=== PATIENT | female | born 1945 | race Caucasian/White ===

== ENCOUNTER 2018-04-12 11:00 | Inpatient (IN) ==
[2018-04-12] MEDS ORDERED: ASPIRIN 325 MG TABLET PO STA (11:17)
[2018-04-12] MEDS ORDERED: ONDANSETRON 4 MG/2 ML VIAL IV PRN ×2 (11:17→14:21)
[2018-04-12] MEDS ORDERED: MORPHINE 4 MG/1 ML VIAL IV PRN ×2 (11:17→14:21)
[2018-04-12] MEDS ORDERED: ALUM/MAG/SIMETH/LIDO VISC 1:1 30 ML BOTTLE PO STA (11:23)
[2018-04-12 13:21] LABS: Basophils # 0.1 10*3/uL (0.0-0.2); Basophils % 0.8 % (0.0-0.8); Eosinophils # 0.2 10*3/uL (0.0-0.87); Eosinophils % 1.6 % (0.00-10.9); Hematocrit 48.1 VOL% (35.7-47.0); Hemoglobin 15.8 GM/DL (12.0-16.0); Immature Granulocytes % 0.4 %; Immature Granulocytes Absolute 0.04 #; Lymphocytes # 1.6 10*3/uL (1.4-4.0); Lymphocytes % 16.3 % (21.3-54.2); Mean Corpuscular HGB Conc 32.8 GM/DL (32-36); Mean Corpuscular Hemoglobin 28 PG (27-34); Mean Corpuscular Volume 84.4 FL (87-102); Mean Platelet Volume 10.5 FL (9.6-12.0); Monocytes # 0.6 10*3/uL (0.11-0.8); Monocytes % 6.1 % (1.7-12.7); Neutrophils # 7.4 10*3/uL (1.4-7.4); Neutrophils % 74.8 % (38.7-73.9); Platelet Count 249 T/CUMM (130-400); Red Cell Distribution Width 13.1 % (9.3-17.3); White Blood Count 9.9 T/CUMM (4-12)
[2018-04-12 13:38] LABS: Albumin 4.1 G/DL (3.4-5.0); Bilirubin,Total 1.3 MG/DL (0.2-1.0); Osmolality,Calculated 284.3 MOS/KG (273-304); Potassium 3.6 MMOL/L (3.5-5.1); Total Protein 7.3 G/DL (6.4-8.3)
[2018-04-12] MEDS ORDERED: NITROGLYCERIN 2% OINT 1 INCH/GM PACK TOP STA (13:59)
[2018-04-12] MEDS ORDERED: ENOXAPARIN 80 MG/0.8 ML SYRINGE SUBCUT STA (14:00)
[2018-04-12] MEDS ORDERED: MAGNESIUM HYDROXIDE SUSP 30 ML UDCUP PO PRN (14:21)
[2018-04-12] MEDS ORDERED: MAGNESIUM SULF RIDER 2 GM in PREMIX 1 EACH IV PRN (14:21)
[2018-04-12] MEDS ORDERED: POTASSIUM CHLORIDE 20 MEQ TABLET PO PRN (14:21)
[2018-04-12] MEDS ORDERED: ALBUTEROL/IPRATROPIUM 3 ML NEB RESP TX PRN (15:09)
[2018-04-12] MEDS ORDERED: GLUCAGON 1 MG VIAL IM PRN (15:11)
[2018-04-12] MEDS ORDERED: DEXTROSE 50% 25 GM/50 ML VIAL IV PRN (15:11)
[2018-04-12 15:14] LABS: INR 0.9
[2018-04-12 15:47] LABS: VLDL CHOLESTEROL 75.8 MG/DL
[2018-04-12] MEDS: SODIUM CHLORIDE 0.45% 1,000 ML IV SCH (17:16)
[2018-04-12] MEDS: LOSARTAN 50 MG TABLET PO SCH (17:17)
[2018-04-12] MEDS: INSULIN LISPRO 100 UNIT/ML SUBCUT SCH ×2 (17:17→22:08)
[2018-04-12] MEDS: METOPROLOL SUCCINATE XL 25 MG TABLET PO SCH ×2 (17:17→22:07)
[2018-04-12 20:34] LABS: CKMB % 4.5 %
[2018-04-12 20:51] LABS: Troponin I 2.4 NG/ML (0.00-0.045)
[2018-04-12] MEDS: ATORVASTATIN 20 MG TABLET PO SCH (22:07)
[2018-04-12 22:27] LABS: CKMB % 4.3 %
[2018-04-12 22:28] LABS: Troponin I 2.43 NG/ML (0.00-0.045)
[2018-04-13] MEDS: ENOXAPARIN 80 MG/0.8 ML SYRINGE SUBCUT SCH ×2 (03:36→17:17)
[2018-04-13 05:14] LABS: Basophils # 0.1 10*3/uL (0.0-0.2); Eosinophils # 0.4 10*3/uL (0.0-0.87); Hematocrit 42.8 VOL% (35.7-47.0); Hemoglobin 13.9 GM/DL (12.0-16.0); Immature Granulocytes % 0.3 %; Immature Granulocytes Absolute 0.02 #; Lymphocytes # 2.3 10*3/uL (1.4-4.0); Lymphocytes % 33.3 % (21.3-54.2); Mean Corpuscular HGB Conc 32.5 GM/DL (32-36); Mean Corpuscular Hemoglobin 27 PG (27-34); Mean Corpuscular Volume 84.4 FL (87-102); Mean Platelet Volume 10.4 FL (9.6-12.0); Monocytes # 0.7 10*3/uL (0.11-0.8); Monocytes % 10.4 % (1.7-12.7); Neutrophils # 3.4 10*3/uL (1.4-7.4); Platelet Count 246 T/CUMM (130-400); Red Blood Count 5.07 MC/CUMM (3.8-5.5); Red Cell Distribution Width 13.2 % (9.3-17.3); White Blood Count 6.9 T/CUMM (4-12)
[2018-04-13 05:31] LABS: Albumin 3.2 G/DL (3.4-5.0); Bilirubin,Total 1.4 MG/DL (0.2-1.0); Calcium 8.3 MG/DL (8.5-10.1); Osmolality,Calculated 284.1 MOS/KG (273-304); Potassium 3.7 MMOL/L (3.5-5.1); Total Protein 6.4 G/DL (6.4-8.3)
[2018-04-13] MEDS: METOPROLOL SUCCINATE XL 25 MG TABLET PO SCH ×2 (08:42→23:30)
[2018-04-13] MEDS: ASPIRIN EC 325 MG TABLET PO SCH (08:42)
[2018-04-13] MEDS: LOSARTAN 50 MG TABLET PO SCH (08:42)
[2018-04-13] MEDS: PANTOPRAZOLE 40 MG TABLET PO SCH (08:43)
[2018-04-13] MEDS: SODIUM CHLORIDE 0.45% 1,000 ML IV SCH ×2 (08:44→17:26)
[2018-04-13] MEDS: INSULIN LISPRO 100 UNIT/ML SUBCUT SCH ×4 (08:44→22:00)
[2018-04-13] MEDS ORDERED: POTASSIUM CHLORIDE RIDER 10 MEQ in PREMIX 1 EACH IV PRN (09:56)
[2018-04-13] MEDS ORDERED: DIAZEPAM 5 MG TABLET PO ONE (09:56)
[2018-04-13] MEDS ORDERED: diphenhydrAMINE CAP 25 MG CAPSULE PO ONE (09:56)
[2018-04-13] MEDS ORDERED: MAGNESIUM SULF RIDER 2 GM in PREMIX 1 EACH IV PRN (09:56)
[2018-04-13] MEDS ORDERED: HEPARIN/NACL 0.9% 2 UNITS/ML 1,000 ML IV ONE (11:02)
[2018-04-13] MEDS ORDERED: VERAPAMIL 5 MG/2 ML VIAL ONE (11:02)
[2018-04-13] MEDS ORDERED: LIDOCAINE 1% 20 ML VIAL ONE (11:02)
[2018-04-13] MEDS ORDERED: NITROGLYCERIN DRIP 50 MG/250 ML BOTTLE IV ONE (11:02)
[2018-04-13] MEDS ORDERED: ENOXAPARIN 30 MG/0.3 ML SYRINGE ONE (11:52)
[2018-04-13] MEDS ORDERED: DEXTROSE 50% 25 GM/50 ML VIAL IV PRN (12:38)
[2018-04-13] MEDS ORDERED: GLUCAGON 1 MG VIAL IM PRN (12:38)
[2018-04-13] MEDS ORDERED: SODIUM CHLORIDE 0.9% 1,000 ML IV SCH (21:00)
[2018-04-13] MEDS: CHLORHEXIDINE 4% SOLN 118 ML BOTTLE TOP SCH (22:20)
[2018-04-13] MEDS: ATORVASTATIN 20 MG TABLET PO SCH (23:30)
[2018-04-13] MEDS: CHLORHEXIDINE 0.12% ORAL RINSE 60 ML BOTTLE SWISH/SPIT SCH (23:30)
[2018-04-14] MEDS ORDERED: PAPAVERINE 60 MG/2 ML VIAL ONE (04:58)
[2018-04-14] MEDS ORDERED: TISSUE ADHESIVE 1 EACH APPLICATOR TOP ONE (04:59)
[2018-04-14] MEDS ORDERED: VANCOMYCIN 1,000 MG VIAL ONE (04:59)
[2018-04-14] MEDS ORDERED: CEFUROXIME INJ 1,500 MG in SYRINGE 1 EACH IV ONE (05:00)
[2018-04-14 05:28] LABS: Basophils # 0.1 10*3/uL (0.0-0.2); Basophils % 0.5 % (0.0-0.8); Eosinophils # 0.1 10*3/uL (0.0-0.87); Eosinophils % 0.9 % (0.00-10.9); Hemoglobin 15.2 GM/DL (12.0-16.0); Immature Granulocytes % 0.3 %; Immature Granulocytes Absolute 0.03 #; Lymphocytes # 1.1 10*3/uL (1.4-4.0); Lymphocytes % 12.2 % (21.3-54.2); Mean Corpuscular HGB Conc 32.3 GM/DL (32-36); Mean Corpuscular Hemoglobin 27 PG (27-34); Mean Corpuscular Volume 84.2 FL (87-102); Mean Platelet Volume 10.6 FL (9.6-12.0); Monocytes # 0.6 10*3/uL (0.11-0.8); Monocytes % 6.7 % (1.7-12.7); Neutrophils # 7.4 10*3/uL (1.4-7.4); Neutrophils % 79.4 % (38.7-73.9); Platelet Count 254 T/CUMM (130-400); Red Blood Count 5.58 MC/CUMM (3.8-5.5); White Blood Count 9.3 T/CUMM (4-12)
[2018-04-14 05:53] LABS: Calcium 8.7 MG/DL (8.5-10.1); Osmolality,Calculated 281.7 MOS/KG (273-304)
[2018-04-14] MEDS: SODIUM CHLORIDE 0.45% 1,000 ML IV SCH ×4 (06:16→18:27)
[2018-04-14] MEDS ORDERED: SUFentanil 250 MCG/5 ML AMP ONE (06:22)
[2018-04-14] MEDS ORDERED: MIDAZOLAM 10 MG/2 ML VIAL ONE (06:22)
[2018-04-14] MEDS: INSULIN LISPRO 100 UNIT/ML SUBCUT SCH ×3 (07:34→16:32)
[2018-04-14] MEDS ORDERED: DIAZEPAM 5 MG TABLET PO ONE (07:45)
[2018-04-14] MEDS: CHLORHEXIDINE 4% SOLN 118 ML BOTTLE TOP SCH ×2 (07:45→18:30)
[2018-04-14] MEDS ORDERED: PANTOPRAZOLE 40 MG TABLET PO ONE (07:45)
[2018-04-14] MEDS ORDERED: ALBUTEROL/IPRATROPIUM 3 ML NEB RESP TX ONE (07:48)
[2018-04-14] MEDS ORDERED: LACTATED RINGERS 1,000 ML IV SCH (08:00)
[2018-04-14] MEDS ORDERED: SODIUM BICARBONATE 50 MEQ/50 ML SYRINGE IV ONE ×2 (08:08→16:11)
[2018-04-14] MEDS ORDERED: CALCIUM CHLORIDE 1,000 MG/10 ML SYRINGE IV ONE ×2 (08:08→18:19)
[2018-04-14] MEDS ORDERED: POTASSIUM CHLORIDE RIDER 100 ML IV ONE (08:08)
[2018-04-14] MEDS ORDERED: PHENYLEPHRINE DRIP 40 MG/250 ML PREMIX IV ONE (08:08)
[2018-04-14] MEDS ORDERED: EPINEPHrine 1 MG/10 ML SYRINGE ONE ×2 (08:09→19:16)
[2018-04-14] MEDS: LOSARTAN 50 MG TABLET PO SCH (10:48)
[2018-04-14] MEDS: CHLORHEXIDINE 0.12% ORAL RINSE 60 ML BOTTLE SWISH/SPIT SCH ×2 (10:48→21:12)
[2018-04-14] MEDS: ASPIRIN EC 325 MG TABLET PO SCH (10:48)
[2018-04-14] MEDS: METOPROLOL SUCCINATE XL 25 MG TABLET PO SCH (10:49)
[2018-04-14] MEDS: PANTOPRAZOLE 40 MG TABLET PO SCH (10:49)
[2018-04-14 12:49] LABS: ABG HCO3 23.6 MMOL/L (20-26); ABG Oxygen Saturation 99.9 % (95-100); ABG PCO2 38.6 MM HG (35-48); ABG PH 7.395 (7.35-7.45); ABG TCO2 20.4 MMOL/L (23-27); Glucose Heart Surgery 155 MG/DL (74-106); Hematocrit Heart Surgery 42.8 PERCENT (37-47); Hemoglobin Heart Surgery 13.9 G/DL (12.0-16.0); Ionized Calcium Arterial 1.08 MMOL/L (1.21-1.46); PCO2 Patient Temp Arterial 38.6 MMHG; PH Patient Temp Arterial 7.395; Patient Temperature 37 CELCIUS; Potassium Heart/CVR 3.6 MMOL/L (3.5-5.1); Sodium Heart/CVR 138 MMOL/L (135-145)
[2018-04-14 13:49] LABS: Apearance,Urine Slightly Hazy (Clear); Bilirubin,Urine Negative (Negative); Blood, Urine Negative (Negative); Glucose,Urine (UA) 150 mg/dL (Negative); Ketones,Urine 20 mg/dL (Negative); Mucus,Urine Occasional /LPF (Occasional); Nitrite,Urine Negative (Negative); Protein,Urine Negative; RBC,Urine 1 /HPF (0-4); Squamous Epithelial Cell,Urine Occasional /HPF (0-10); Urine Color Yellow (Yellow); Urine Specific Gravity 1.021 (1.001-1.035); Urine Urobilinogen < 2.0 EU/DL (0.2-1.0); WBC,Urine 1 /HPF (0-6)
[2018-04-14 14:39] LABS: Hematocrit Heart Surgery 26.1 PERCENT (37-47); Hemoglobin Heart Surgery 8.4 G/DL (12.0-16.0); PCO2 Patient Temp Venous 33.9 MM HG; PH Patient Temp Venous 7.401; PO2 Patient Temp Venous 45.4 MM HG; Potassium Heart/CVR 3.8 MMOL/L (3.5-5.1); VBG Base Excess -3.1 MEQ/L (0-4); VBG HCO3 21.7 MEQ/L (24-28); VBG Oxygen Saturation 89.2 %; VBG PCO2 39.1 MMHG (41-51); VBG PH 7.358; VBG PO2 55.6 MMHG (17-40)
[2018-04-14] MEDS ORDERED: diphenhydrAMINE 50 MG/1 ML VIAL ONE ×2 (14:58→17:55)
[2018-04-14 15:14] LABS: Hematocrit Heart Surgery 26.3 PERCENT (37-47); Hemoglobin Heart Surgery 8.4 G/DL (12.0-16.0); PCO2 Patient Temp Venous 35.1 MM HG; PH Patient Temp Venous 7.411; PO2 Patient Temp Venous 48.5 MM HG; Potassium Heart/CVR 3.2 MMOL/L (3.5-5.1); VBG Base Excess -1.9 MEQ/L (0-4); VBG HCO3 22.7 MEQ/L (24-28); VBG Oxygen Saturation 89.7 %; VBG PCO2 38.7 MMHG (41-51); VBG PH 7.382; VBG PO2 55.5 MMHG (17-40)
[2018-04-14 15:38] LABS: Hematocrit Heart Surgery 28.1 PERCENT (37-47); Hemoglobin Heart Surgery 9.1 G/DL (12.0-16.0); PCO2 Patient Temp Venous 37.7 MM HG; PH Patient Temp Venous 7.41; PO2 Patient Temp Venous 43.1 MM HG; Potassium Heart/CVR 4.1 MMOL/L (3.5-5.1); VBG Base Excess -0.5 MEQ/L (0-4); VBG HCO3 23.7 MEQ/L (24-28); VBG Oxygen Saturation 80.9 %; VBG PCO2 37.7 MMHG (41-51); VBG PH 7.41; VBG PO2 43.1 MMHG (17-40)
[2018-04-14] MEDS ORDERED: MANNITOL 100 GM/500 ML BAG IV ONE (16:10)
[2018-04-14] MEDS ORDERED: DEXTROSE 5% KCL 20 MEQ 20 MEQ/1,000 ML BAG IV ONE (16:11)
[2018-04-14] MEDS ORDERED: PROTAMINE SULFATE 250 MG/25 ML VIAL IV ONE (16:11)
[2018-04-14] MEDS ORDERED: HEPARIN 10,000 UNIT/10 ML VIAL ONE (16:11)
[2018-04-14] MEDS ORDERED: ALBUMIN 25% 25 GM/100 ML VIAL IV ONE (16:11)
[2018-04-14] MEDS ORDERED: MAGNESIUM SULFATE 10 GM/20 ML VIAL IV ONE (16:11)
[2018-04-14] MEDS ORDERED: PROTAMINE SULFATE 50 MG/5 ML VIAL IV ONE (16:12)
[2018-04-14] MEDS ORDERED: ALBUMIN 5% 12.5 GM/250 ML VIAL IV ONE ×2 (16:12→17:39)
[2018-04-14] MEDS ORDERED: PHENYLEPHRINE 10 MG/1 ML VIAL IV ONE ×2 (16:12→19:17)
[2018-04-14] MEDS ORDERED: methylPREDNISolone SOD SUC 1,000 MG/8 ML VIAL ONE (16:12)
[2018-04-14] MEDS ORDERED: FUROSEMIDE 20 MG/2 ML VIAL ONE (16:12)
[2018-04-14] MEDS ORDERED: PHENYLEPHRINE 1 MG/10 ML SYRINGE IV ONE ×2 (16:13→19:17)
[2018-04-14] MEDS ORDERED: POTASSIUM CHLORIDE 20 MEQ/10 ML VIAL ONE (16:13)
[2018-04-14] MEDS ORDERED: SODIUM CHLORIDE 0.9% 750 ML IV ONE (16:13)
[2018-04-14 16:18] LABS: ABG Base Excess -5.7 MMOL/L (-2.5-2.5); ABG HCO3 19.8 MMOL/L (20-26); ABG Oxygen Saturation 99.1 % (95-100); ABG PH 7.304 (7.35-7.45); ABG TCO2 18.7 MMOL/L (23-27); Glucose Heart Surgery 324 MG/DL (74-106); Hematocrit Heart Surgery 30.5 PERCENT (37-47); Hemoglobin Heart Surgery 9.9 G/DL (12.0-16.0); Ionized Calcium Arterial 1.19 MMOL/L (1.21-1.46); PH Patient Temp Arterial 7.304; Patient Temperature 37 CELCIUS; Potassium Heart/CVR 3.4 MMOL/L (3.5-5.1); Sodium Heart/CVR 135 MMOL/L (135-145)
[2018-04-14] MEDS: PHENYLEPHRINE DRIP 40 MG/250 ML PREMIX IV PRN (18:00)
[2018-04-14] MEDS ORDERED: INSULIN REGULAR 100 UNIT/ML IV PRN (18:06)
[2018-04-14] MEDS ORDERED: CALCIUM CHLORIDE 1,000 MG/10 ML SYRINGE IV PRN (18:06)
[2018-04-14] MEDS ORDERED: SODIUM CHLORIDE 0.9% 250 ML IV PRN (18:06)
[2018-04-14] MEDS ORDERED: ACETAMINOPHEN 650 MG SUPP RECTAL PRN (18:06)
[2018-04-14] MEDS ORDERED: ONDANSETRON 4 MG/2 ML VIAL IV PRN (18:06)
[2018-04-14] MEDS ORDERED: CHLORHEXIDINE 4% SOLN 118 ML BOTTLE TOP PRN (18:06)
[2018-04-14] MEDS ORDERED: MIDAZOLAM 2 MG/2 ML VIAL IV PRN (18:06)
[2018-04-14] MEDS ORDERED: MAGNESIUM SULF RIDER 4 GM in PREMIX 1 EACH IV PRN (18:06)
[2018-04-14] MEDS ORDERED: MAGNESIUM SULF RIDER 2 GM in PREMIX 1 EACH IV PRN (18:06)
[2018-04-14] MEDS ORDERED: DEXTROSE 50% 25 GM/50 ML SYRINGE IV PRN ×2 (18:06)
[2018-04-14 18:10] LABS: ABG Base Excess -1.7 MMOL/L (-2.5-2.5); ABG HCO3 22.9 MMOL/L (20-26); ABG Oxygen Saturation 97.2 % (95-100); ABG PCO2 38.6 MM HG (35-48); ABG PH 7.392 (7.35-7.45); ABG PO2 101.3 MM HG (80-95); ABG TCO2 24.1 MMOL/L (23-27); Glucose Heart Surgery 265 MG/DL (74-106); Hemoglobin Heart Surgery 11.6 G/DL (12.0-16.0); Potassium Heart/CVR 3.3 MMOL/L (3.5-5.1)
[2018-04-14] MEDS ORDERED: methylPREDNISolone SOD SUC 125 MG/2 ML VIAL ONE (18:12)
[2018-04-14] MEDS: POTASSIUM CHLORIDE RIDER 20 MEQ in PREMIX 1 EACH IV PRN ×2 (18:15→18:50)
[2018-04-14 18:16] LABS: Basophils % 0.1 % (0.0-0.8); Eosinophils % 0.2 % (0.00-10.9); Hematocrit 32.6 VOL% (35.7-47.0); Hemoglobin 10.6 GM/DL (12.0-16.0); Immature Granulocytes % 0.7 %; Immature Granulocytes Absolute 0.12 #; Lymphocytes # 0.7 10*3/uL (1.4-4.0); Lymphocytes % 3.7 % (21.3-54.2); Mean Corpuscular HGB Conc 32.5 GM/DL (32-36); Mean Corpuscular Hemoglobin 28 PG (27-34); Mean Platelet Volume 10.4 FL (9.6-12.0); Monocytes # 1.2 10*3/uL (0.11-0.8); Monocytes % 6.4 % (1.7-12.7); Neutrophils # 16.3 10*3/uL (1.4-7.4); Neutrophils % 88.9 % (38.7-73.9); Platelet Count 180 T/CUMM (130-400); Red Blood Count 3.79 MC/CUMM (3.8-5.5); Red Cell Distribution Width 13.2 % (9.3-17.3); White Blood Count 18.4 T/CUMM (4-12)
[2018-04-14] MEDS ORDERED: diphenhydrAMINE 50 MG/1 ML VIAL IV ONE (18:17)
[2018-04-14] MEDS ORDERED: methylPREDNISolone SOD SUC 125 MG/2 ML VIAL IV ONE (18:17)
[2018-04-14 18:25] LABS: INR 1.3; PT Patient Result 13.7 SECS; Partial Thromboplastin Time 32.8 SECS (0-40)
[2018-04-14] MEDS ORDERED: NOREPINEPHRINE 8 MG in SODIUM CHLORIDE 0.9% 242 ML IV PRN (18:26)
[2018-04-14] MEDS ORDERED: NOREPINEPHRINE 4 MG/4 ML VIAL IV ONE (18:27)
[2018-04-14] MEDS: ALBUMIN 5% 12.5 GM in PREMIX 1 EACH IV PRN ×2 (18:28→21:11)
[2018-04-14] MEDS ORDERED: INSULIN REGULAR DRIP 100 ML IV SCH (18:30)
[2018-04-14] MEDS ORDERED: SODIUM CHLORIDE 0.45% 1,000 ML IV SCH (18:30)
[2018-04-14 18:35] LABS: Blood Urea Nitrogen 12 MG/DL (7-18); Glucose 259 MG/DL (74-106); Osmolality,Calculated 296.7 MOS/KG (273-304); Potassium 3.5 MMOL/L (3.5-5.1); Sodium 145 MMOL/L (136-145)
[2018-04-14 18:39] LABS: Lactic Acid 5.3 MMOL/L (0.4-2.0)
[2018-04-14] MEDS: ALBUTEROL/IPRATROPIUM 3 ML NEB RESP TX SCH ×2 (18:40→22:49)
[2018-04-14] MEDS ORDERED: SUFentanil 50 MCG/ML AMP ONE (18:45)
[2018-04-14 18:57] LABS: Band Neutrophils 2 % (0-10); Hypochromasia Slight; Lymphocytes 2 % (20-55); Platelet Estimate Adequate; Segmented Neutrophils 94 % (50-85); Total Cells Counted 100
[2018-04-14] MEDS ORDERED: ASPIRIN 325 MG TABLET PO ONE (19:08)
[2018-04-14] MEDS ORDERED: HEPARIN/NACL 0.9% 2 UNITS/ML 500 ML IV ONE (19:16)
[2018-04-14] MEDS ORDERED: VECURONIUM 10 MG VIAL IV ONE (19:16)
[2018-04-14] MEDS ORDERED: ePHEDrine 50 MG/ML AMP ONE (19:16)
[2018-04-14] MEDS ORDERED: METOPROLOL TARTRATE 5 MG/5 ML VIAL IV ONE (19:16)
[2018-04-14] MEDS ORDERED: MINERAL OIL/PETROLATUM OPH OINT 3.5 GM TUBE ONE (19:16)
[2018-04-14] MEDS ORDERED: AMINOCAPROIC ACID 5,000 MG/20 ML VIAL IV ONE (19:16)
[2018-04-14] MEDS ORDERED: CALCIUM CHLORIDE 1,000 MG/10 ML VIAL IV ONE (19:16)
[2018-04-14] MEDS ORDERED: NITROGLYCERIN DRIP 50 MG/250 ML BOTTLE IV ONE (19:16)
[2018-04-14] MEDS ORDERED: SEVOFLURANE 1 UNIT/15 MINUTE INH ONE (19:16)
[2018-04-14] MEDS ORDERED: ETOMIDATE 40 MG/20 ML VIAL IV ONE (19:16)
[2018-04-14] MEDS ORDERED: LACTATED RINGERS 1,000 ML IV ONE (19:17)
[2018-04-14] MEDS ORDERED: SODIUM CHLORIDE 0.9% 500 ML IV ONE (19:17)
[2018-04-14] MEDS ORDERED: SODIUM CHLORIDE 0.9% 2,000 ML IV ONE (19:17)
[2018-04-14] MEDS ORDERED: ASPIRIN 300 MG SUPP RECTAL ONE (19:23)
[2018-04-14 21:03] LABS: ABG Base Excess 1.4 MMOL/L (-2.5-2.5); ABG Oxygen Saturation 98.7 % (95-100); ABG PCO2 35.9 MM HG (35-48); ABG PO2 145.9 MM HG (80-95); ABG TCO2 26.1 MMOL/L (23-27); Glucose Heart Surgery 253 MG/DL (74-106); Hemoglobin Heart Surgery 13.1 G/DL (12.0-16.0); Potassium Heart/CVR 4.1 MMOL/L (3.5-5.1)
[2018-04-15] MEDS: CEFUROXIME INJ 1,500 MG in SYRINGE 1 EACH IV SCH ×2 (02:16→13:43)
[2018-04-15] MEDS: ALBUTEROL/IPRATROPIUM 3 ML NEB RESP TX SCH ×6 (02:55→23:09)
[2018-04-15 03:51] LABS: Basophils % 0.1 % (0.0-0.8); Hematocrit 34.7 VOL% (35.7-47.0); Hemoglobin 11.5 GM/DL (12.0-16.0); Immature Granulocytes % 0.6 %; Lymphocytes # 0.6 10*3/uL (1.4-4.0); Lymphocytes % 3.8 % (21.3-54.2); Mean Corpuscular HGB Conc 33.1 GM/DL (32-36); Mean Corpuscular Hemoglobin 28 PG (27-34); Mean Corpuscular Volume 83.8 FL (87-102); Mean Platelet Volume 10.4 FL (9.6-12.0); Monocytes # 0.9 10*3/uL (0.11-0.8); Monocytes % 5.1 % (1.7-12.7); Neutrophils # 15.1 10*3/uL (1.4-7.4); Neutrophils % 90.4 % (38.7-73.9); Platelet Count 145 T/CUMM (130-400); Red Blood Count 4.14 MC/CUMM (3.8-5.5); Red Cell Distribution Width 13.4 % (9.3-17.3); White Blood Count 16.7 T/CUMM (4-12)
[2018-04-15 04:49] LABS: Calcium 8.4 MG/DL (8.5-10.1); Osmolality,Calculated 284.8 MOS/KG (273-304); Potassium 3.6 MMOL/L (3.5-5.1)
[2018-04-15] MEDS: MORPHINE 10 MG/1 ML VIAL IV PRN ×2 (05:06→09:50)
[2018-04-15] MEDS: POTASSIUM CHLORIDE RIDER 20 MEQ in PREMIX 1 EACH IV PRN (05:38)
[2018-04-15 06:06] LABS: Hypochromasia Slight; Lymphocytes 8 % (20-55); Platelet Estimate Adequate; Segmented Neutrophils 89 % (50-85); Total Cells Counted 100
[2018-04-15] MEDS: POTASSIUM CHLORIDE RIDER 10 MEQ in PREMIX 1 EACH IV PRN (06:11)
[2018-04-15] MEDS: SODIUM CHLORIDE 0.45% 1,000 ML IV SCH ×2 (07:24→09:50)
[2018-04-15] MEDS: MORPHINE 4 MG/1 ML VIAL IV PRN ×2 (07:50→22:12)
[2018-04-15] MEDS: INSULIN REGULAR 100 UNIT/ML SUBCUT SCH ×4 (08:22→22:13)
[2018-04-15] MEDS ORDERED: FUROSEMIDE 40 MG/4 ML VIAL IV ONE (08:46)
[2018-04-15] MEDS: CHLORHEXIDINE 0.12% ORAL RINSE 60 ML BOTTLE SWISH/SPIT SCH ×2 (09:00→22:13)
[2018-04-15] MEDS: ASPIRIN 325 MG TABLET PO SCH (09:00)
[2018-04-15] MEDS: CLOPIDOGREL 75 MG TABLET PO SCH (09:00)
[2018-04-15] MEDS: METOPROLOL TARTRATE 5 MG/5 ML VIAL IV SCH ×2 (09:50→17:57)
[2018-04-15] MEDS: DEXMEDETOMIDINE 200 MCG in SODIUM CHLORIDE 0.9% 48 ML IV PRN (10:00)
[2018-04-15] MEDS: PANTOPRAZOLE 40 MG VIAL IV SCH (10:05)
[2018-04-15] MEDS: ASPIRIN 300 MG SUPP RECTAL SCH (10:09)
[2018-04-15 10:20] LABS: HIV Antigen/Antibody Result Nonreactive (Nonreactive); Hepatitis B Surface Ag Quant < 0.10 Index; Hepatitis B Surface Ag Result Negative (Negative); Hepatitis C Virus Ab Quant 0.03 Index; Hepatitis C Virus Ab Result Negative (Negative)
[2018-04-15] MEDS: ASCORBIC ACID 500 MG TABLET PO SCH ×2 (12:14→22:09)
[2018-04-15] MEDS: PHENYLEPHRINE DRIP 40 MG/250 ML PREMIX IV PRN (14:13)
[2018-04-15] MEDS: ATORVASTATIN 40 MG TABLET PO SCH (19:22)
[2018-04-15] MEDS: FUROSEMIDE 40 MG TABLET PO SCH (19:22)
[2018-04-15] MEDS: ASPIRIN EC 325 MG TABLET PO SCH (19:22)
[2018-04-16] MEDS: DEXMEDETOMIDINE 200 MCG in SODIUM CHLORIDE 0.9% 48 ML IV PRN (00:38)
[2018-04-16] MEDS: METOPROLOL TARTRATE 5 MG/5 ML VIAL IV SCH ×3 (00:39→17:10)
[2018-04-16] MEDS: INSULIN REGULAR 100 UNIT/ML SUBCUT SCH ×6 (00:45→22:57)
[2018-04-16] MEDS: CEFUROXIME INJ 1,500 MG in SYRINGE 1 EACH IV SCH (01:35)
[2018-04-16] MEDS: ALBUTEROL/IPRATROPIUM 3 ML NEB RESP TX SCH ×6 (02:42→22:42)
[2018-04-16 03:52] LABS: Basophils % 0.1 % (0.0-0.8); Hematocrit 32.6 VOL% (35.7-47.0); Hemoglobin 10.9 GM/DL (12.0-16.0); Immature Granulocytes % 0.8 %; Immature Granulocytes Absolute 0.19 #; Lymphocytes # 0.8 10*3/uL (1.4-4.0); Lymphocytes % 3.3 % (21.3-54.2); Mean Corpuscular HGB Conc 33.4 GM/DL (32-36); Mean Corpuscular Hemoglobin 28 PG (27-34); Mean Corpuscular Volume 84.7 FL (87-102); Mean Platelet Volume 11.4 FL (9.6-12.0); Monocytes # 1.4 10*3/uL (0.11-0.8); Monocytes % 5.8 % (1.7-12.7); Neutrophils # 21.9 10*3/uL (1.4-7.4); Platelet Count 180 T/CUMM (130-400); Red Blood Count 3.85 MC/CUMM (3.8-5.5); Red Cell Distribution Width 13.5 % (9.3-17.3); White Blood Count 24.4 T/CUMM (4-12)
[2018-04-16 04:08] LABS: Osmolality,Calculated 288.3 MOS/KG (273-304); Potassium 3.7 MMOL/L (3.5-5.1)
[2018-04-16 04:59] LABS: Band Neutrophils 1 % (0-10); Hypochromasia 1+; Lymphocytes 4 % (20-55); Platelet Estimate Adequate; Segmented Neutrophils 87 % (50-85); Total Cells Counted 100
[2018-04-16] MEDS: MORPHINE 10 MG/1 ML VIAL IV PRN (05:28)
[2018-04-16] MEDS: POTASSIUM CHLORIDE RIDER 20 MEQ in PREMIX 1 EACH IV PRN (05:29)
[2018-04-16 05:41] LABS: ABG Base Excess 3.4 MMOL/L (-2.5-2.5); ABG HCO3 28.1 MMOL/L (20-26); ABG Oxygen Saturation 97.6 % (95-100); ABG PCO2 43.1 MM HG (35-48); ABG PH 7.432 (7.35-7.45); ABG PO2 105.5 MM HG (80-95); ABG TCO2 29.4 MMOL/L (23-27)
[2018-04-16] MEDS: POTASSIUM CHLORIDE RIDER 10 MEQ in PREMIX 1 EACH IV PRN (06:00)
[2018-04-16] MEDS: ASPIRIN EC 325 MG TABLET PO SCH (08:39)
[2018-04-16] MEDS: ASCORBIC ACID 500 MG TABLET PO SCH ×2 (08:39→23:11)
[2018-04-16] MEDS: FUROSEMIDE 40 MG TABLET PO SCH (08:39)
[2018-04-16] MEDS: CLOPIDOGREL 75 MG TABLET PO SCH (08:39)
[2018-04-16] MEDS: CHLORHEXIDINE 0.12% ORAL RINSE 60 ML BOTTLE SWISH/SPIT SCH ×2 (08:40→23:11)
[2018-04-16] MEDS: PANTOPRAZOLE 40 MG VIAL IV SCH (08:42)
[2018-04-16] MEDS: ASPIRIN 300 MG SUPP RECTAL SCH (10:01)
[2018-04-16] MEDS: MORPHINE 4 MG/1 ML VIAL IV PRN (15:11)
[2018-04-16] MEDS: SODIUM CHLORIDE 0.45% 1,000 ML IV SCH (15:21)
[2018-04-16] MEDS ORDERED: AMIODARONE INJ 150 MG in DEXTROSE 5% 100 ML IV ONE ×2 (17:48→18:59)
[2018-04-16] MEDS ORDERED: AMIODARONE INJ 450 MG in DEXTROSE 5% 241 ML IV SCH (18:00)
[2018-04-16] MEDS: ATORVASTATIN 40 MG TABLET PO SCH (23:10)
[2018-04-17] MEDS: METOPROLOL TARTRATE 5 MG/5 ML VIAL IV SCH ×2 (00:32→10:00)
[2018-04-17] MEDS: INSULIN REGULAR 100 UNIT/ML SUBCUT SCH ×6 (00:32→21:07)
[2018-04-17] MEDS: AMIODARONE INJ 450 MG in DEXTROSE 5% 241 ML IV SCH ×2 (00:32→15:35)
[2018-04-17] MEDS: ALBUTEROL/IPRATROPIUM 3 ML NEB RESP TX SCH ×6 (02:31→23:04)
[2018-04-17 04:33] LABS: Basophils % 0.1 % (0.0-0.8); Eosinophils % 0.1 % (0.00-10.9); Hematocrit 30.4 VOL% (35.7-47.0); Hemoglobin 9.8 GM/DL (12.0-16.0); Immature Granulocytes % 1.2 %; Immature Granulocytes Absolute 0.18 #; Lymphocytes # 0.9 10*3/uL (1.4-4.0); Mean Corpuscular HGB Conc 32.2 GM/DL (32-36); Mean Corpuscular Hemoglobin 28 PG (27-34); Mean Corpuscular Volume 86.1 FL (87-102); Mean Platelet Volume 11.1 FL (9.6-12.0); Monocytes # 1.1 10*3/uL (0.11-0.8); Monocytes % 7.5 % (1.7-12.7); Neutrophils # 12.9 10*3/uL (1.4-7.4); Neutrophils % 85.1 % (38.7-73.9); Platelet Count 141 T/CUMM (130-400); Red Blood Count 3.53 MC/CUMM (3.8-5.5); Red Cell Distribution Width 13.9 % (9.3-17.3); White Blood Count 15.2 T/CUMM (4-12)
[2018-04-17 04:58] LABS: Calcium 7.9 MG/DL (8.5-10.1); Osmolality,Calculated 289.3 MOS/KG (273-304)
[2018-04-17] MEDS: POTASSIUM CHLORIDE RIDER 20 MEQ in PREMIX 1 EACH IV PRN (05:15)
[2018-04-17] MEDS: ASCORBIC ACID 500 MG TABLET PO SCH ×2 (10:00→20:33)
[2018-04-17] MEDS: ASPIRIN EC 325 MG TABLET PO SCH (10:00)
[2018-04-17] MEDS: PANTOPRAZOLE 40 MG VIAL IV SCH (10:00)
[2018-04-17] MEDS: FUROSEMIDE 40 MG TABLET PO SCH (10:00)
[2018-04-17] MEDS: CLOPIDOGREL 75 MG TABLET PO SCH (10:01)
[2018-04-17] MEDS: CHLORHEXIDINE 0.12% ORAL RINSE 60 ML BOTTLE SWISH/SPIT SCH ×2 (10:04→20:38)
[2018-04-17] MEDS: AMIODARONE 200 MG TABLET PO SCH ×2 (13:30→20:34)
[2018-04-17] MEDS ORDERED: AMIODARONE INJ 150 MG in DEXTROSE 5% 100 ML IV ONE (13:44)
[2018-04-17] MEDS ORDERED: ACETAMINOPHEN 500 MG TABLET PO PRN (14:53)
[2018-04-17] MEDS: SODIUM CHLORIDE 0.45% 1,000 ML IV SCH (15:36)
[2018-04-17] MEDS: ATORVASTATIN 40 MG TABLET PO SCH (20:33)
[2018-04-17] MEDS: METOPROLOL TARTRATE 25 MG TABLET PO SCH (20:35)
[2018-04-18] MEDS: VANCOMYCIN INJ 1,000 MG in SODIUM CHLORIDE 0.9% 250 ML IV SCH ×2 (01:00→15:02)
[2018-04-18] MEDS: PIPERACILLIN/TAZOBACTAM 3,375 MG in SODIUM CHLORIDE 0.9% 100 ML IV SCH ×3 (02:02→19:09)
[2018-04-18] MEDS: ALBUTEROL/IPRATROPIUM 3 ML NEB RESP TX SCH ×6 (03:54→23:27)
[2018-04-18 04:12] LABS: Basophils % 0.1 % (0.0-0.8); Eosinophils # 0.1 10*3/uL (0.0-0.87); Eosinophils % 0.7 % (0.00-10.9); Hemoglobin 10.2 GM/DL (12.0-16.0); Immature Granulocytes % 0.9 %; Immature Granulocytes Absolute 0.11 #; Lymphocytes # 1.8 10*3/uL (1.4-4.0); Lymphocytes % 14.1 % (21.3-54.2); Mean Corpuscular HGB Conc 31.9 GM/DL (32-36); Mean Corpuscular Hemoglobin 27 PG (27-34); Mean Corpuscular Volume 85.8 FL (87-102); Mean Platelet Volume 11.6 FL (9.6-12.0); Monocytes # 0.9 10*3/uL (0.11-0.8); Monocytes % 7.3 % (1.7-12.7); NRBC # 0.03 10*3/uL; Neutrophils # 9.5 10*3/uL (1.4-7.4); Neutrophils % 76.9 % (38.7-73.9); Platelet Count 148 T/CUMM (130-400); Red Blood Count 3.73 MC/CUMM (3.8-5.5); Red Cell Distribution Width 13.8 % (9.3-17.3); White Blood Count 12.4 T/CUMM (4-12)
[2018-04-18 04:27] LABS: Calcium 7.7 MG/DL (8.5-10.1); Potassium 3.4 MMOL/L (3.5-5.1)
[2018-04-18] MEDS: POTASSIUM CHLORIDE RIDER 10 MEQ in PREMIX 1 EACH IV PRN ×2 (06:15→07:20)
[2018-04-18] MEDS: INSULIN REGULAR 100 UNIT/ML SUBCUT SCH ×4 (09:34→21:11)
[2018-04-18] MEDS: AMIODARONE 200 MG TABLET PO SCH ×2 (09:35→21:11)
[2018-04-18] MEDS: FUROSEMIDE 40 MG TABLET PO SCH (09:35)
[2018-04-18] MEDS: ASCORBIC ACID 500 MG TABLET PO SCH ×2 (09:35→21:11)
[2018-04-18] MEDS: DOCUSATE SODIUM 100 MG CAPSULE PO SCH ×2 (09:35→21:11)
[2018-04-18] MEDS: PANTOPRAZOLE 40 MG TABLET PO SCH (09:35)
[2018-04-18] MEDS: METOPROLOL TARTRATE 25 MG TABLET PO SCH ×2 (09:35→21:11)
[2018-04-18] MEDS: ASPIRIN EC 325 MG TABLET PO SCH (09:36)
[2018-04-18] MEDS: ASPIRIN 325 MG TABLET PO SCH (09:37)
[2018-04-18] MEDS: PANTOPRAZOLE 40 MG VIAL IV SCH (09:37)
[2018-04-18] MEDS: CLOPIDOGREL 75 MG TABLET PO SCH (09:37)
[2018-04-18] MEDS: AMIODARONE INJ 450 MG in DEXTROSE 5% 241 ML IV SCH (09:38)
[2018-04-18] MEDS: CHLORHEXIDINE 0.12% ORAL RINSE 60 ML BOTTLE SWISH/SPIT SCH ×2 (09:50→21:11)
[2018-04-18 14:46] LABS: Apearance,Urine CLEAR (Clear); Bilirubin,Urine Negative (Negative); Blood, Urine Negative (Negative); Glucose,Urine (UA) 50 mg/dL (Negative); Ketones,Urine Negative (Negative); Nitrite,Urine Negative (Negative); Protein,Urine Negative; RBC,Urine 1 /HPF (0-4); Squamous Epithelial Cell,Urine Occasional /HPF (0-10); Urine Color Straw (Yellow); Urine Specific Gravity 1.009 (1.001-1.035); Urine Urobilinogen < 2.0 EU/DL (0.2-1.0); WBC,Urine 1 /HPF (0-6)
[2018-04-18] MEDS ORDERED: METOPROLOL TARTRATE 5 MG/5 ML VIAL IV ONE (18:27)
[2018-04-18] MEDS: metFORMIN 500 MG TABLET PO SCH (19:09)
[2018-04-18] MEDS: ATORVASTATIN 40 MG TABLET PO SCH (21:11)
[2018-04-19] MEDS: VANCOMYCIN INJ 1,000 MG in SODIUM CHLORIDE 0.9% 250 ML IV SCH ×2 (02:41→14:14)
[2018-04-19] MEDS: ALBUTEROL/IPRATROPIUM 3 ML NEB RESP TX SCH ×3 (03:35→10:47)
[2018-04-19] MEDS: PIPERACILLIN/TAZOBACTAM 3,375 MG in SODIUM CHLORIDE 0.9% 100 ML IV SCH ×2 (04:36→11:05)
[2018-04-19 05:56] LABS: Calcium 8.1 MG/DL (8.5-10.1); Osmolality,Calculated 278.7 MOS/KG (273-304); Potassium 3.6 MMOL/L (3.5-5.1)
[2018-04-19 07:02] LABS: Basophils % 0.1 % (0.0-0.8); Eosinophils # 0.2 10*3/uL (0.0-0.87); Hematocrit 32.3 VOL% (35.7-47.0); Hemoglobin 10.4 GM/DL (12.0-16.0); Immature Granulocytes % 1.2 %; Immature Granulocytes Absolute 0.18 #; Lymphocytes # 1.1 10*3/uL (1.4-4.0); Lymphocytes % 7.3 % (21.3-54.2); Mean Corpuscular HGB Conc 32.2 GM/DL (32-36); Mean Corpuscular Hemoglobin 27 PG (27-34); Mean Platelet Volume 11.1 FL (9.6-12.0); Monocytes # 1.5 10*3/uL (0.11-0.8); Monocytes % 9.6 % (1.7-12.7); Neutrophils # 12.3 10*3/uL (1.4-7.4); Neutrophils % 80.8 % (38.7-73.9); Platelet Count 192 T/CUMM (130-400); White Blood Count 15.2 T/CUMM (4-12)
[2018-04-19] MEDS: INSULIN REGULAR 100 UNIT/ML SUBCUT SCH ×2 (09:21→12:34)
[2018-04-19] MEDS: FUROSEMIDE 40 MG TABLET PO SCH (09:22)
[2018-04-19] MEDS: metFORMIN 500 MG TABLET PO SCH (09:22)
[2018-04-19] MEDS: AMIODARONE 200 MG TABLET PO SCH (09:22)
[2018-04-19] MEDS: CLOPIDOGREL 75 MG TABLET PO SCH (09:22)
[2018-04-19] MEDS: ASPIRIN EC 325 MG TABLET PO SCH (09:23)
[2018-04-19] MEDS: DOCUSATE SODIUM 100 MG CAPSULE PO SCH (09:23)
[2018-04-19] MEDS: CHLORHEXIDINE 0.12% ORAL RINSE 60 ML BOTTLE SWISH/SPIT SCH (09:23)
[2018-04-19] MEDS: METOPROLOL TARTRATE 25 MG TABLET PO SCH (09:23)
[2018-04-19] MEDS: PANTOPRAZOLE 40 MG TABLET PO SCH (09:23)
[2018-04-19] MEDS: ASCORBIC ACID 500 MG TABLET PO SCH (09:23)
[2018-04-19 11:56] VITALS: BP 126/66
[2018-04-19] MEDS ORDERED: PNEUMOCOCCAL VACCINE (23 VALENT) 0.5 ML VIAL IM ONE (12:14)
== END 2018-04-19 14:05 | DRG 233 ==
LOC: N.ED 11:00 → SUATTDRO 14:30 → N.EDINP 14:30 → N.2W 16:43 → N.TELEN 18:11 → N.CVR 04-14 08:26 → N.ICU 04-15 12:02 → N.TELES 04-17 16:24
PROVIDERS: ADMIT Internal Medicine; ATTEND Internal Medicine
PROC: CLCCHCL (ICD-10-PCS; 2018-04-13 12:15)

== ENCOUNTER 2018-06-15 15:19 | Observation (INO) ==
[2018-06-15 17:51] LABS: Apearance,Urine CLOUDY (Clear); Bacteria,Urine Occasional /HPF (Few); Bilirubin,Urine Negative (Negative); Blood, Urine Small mg/dL (Negative); Glucose,Urine (UA) Negative (Negative); Ketones,Urine 5 mg/dL (Negative); Mucus,Urine Occasional /LPF (Occasional); Nitrite,Urine Negative (Negative); Protein,Urine Negative; RBC,Urine 44 /HPF (0-4); Squamous Epithelial Cell,Urine Occasional /HPF (0-10); Urine Color Yellow (Yellow); Urine Specific Gravity 1.015 (1.001-1.035); Urine Urobilinogen < 2.0 EU/DL (0.2-1.0); WBC,Urine 27 /HPF (0-6)
[2018-06-15] MEDS ORDERED: ONDANSETRON 4 MG/2 ML VIAL IV STA (18:00)
[2018-06-15] MEDS ORDERED: SODIUM CHLORIDE 0.9% 1,000 ML IV STA ×2 (18:00→21:01)
[2018-06-15 18:24] LABS: Basophils # 0.1 10*3/uL (0.0-0.2); Basophils % 1.6 % (0.0-0.8); Eosinophils # 0.4 10*3/uL (0.0-0.87); Eosinophils % 6.9 % (0.00-10.9); Hematocrit 44.6 VOL% (35.7-47.0); Immature Granulocytes % 0.8 %; Immature Granulocytes Absolute 0.05 #; Lymphocytes # 1.1 10*3/uL (1.4-4.0); Lymphocytes % 17.9 % (21.3-54.2); Mean Corpuscular HGB Conc 31.4 GM/DL (32-36); Mean Corpuscular Hemoglobin 26 PG (27-34); Mean Corpuscular Volume 84.2 FL (87-102); Mean Platelet Volume 11.3 FL (9.6-12.0); Monocytes # 0.8 10*3/uL (0.11-0.8); Neutrophils # 3.8 10*3/uL (1.4-7.4); Neutrophils % 60.8 % (38.7-73.9); Platelet Count 344 T/CUMM (130-400); Red Cell Distribution Width 14.9 % (9.3-17.3); White Blood Count 6.2 T/CUMM (4-12)
[2018-06-15 18:54] LABS: Albumin 3.8 G/DL (3.4-5.0); Bilirubin,Total 0.4 MG/DL (0.2-1.0); Calcium 9.3 MG/DL (8.5-10.1); Osmolality,Calculated 283.4 MOS/KG (273-304); Potassium 4.4 MMOL/L (3.5-5.1); Total Protein 8.5 G/DL (6.4-8.3)
[2018-06-15] MEDS ORDERED: ONDANSETRON 4 MG/2 ML VIAL IV PRN (21:35)
[2018-06-15] MEDS ORDERED: BISACODYL 5 MG TABLET PO PRN (21:35)
[2018-06-15] MEDS ORDERED: ACETAMINOPHEN 325 MG TABLET PO PRN (21:35)
[2018-06-15] MEDS ORDERED: PANTOPRAZOLE 40 MG TABLET PO SCH (21:45)
[2018-06-15] MEDS ORDERED: Linaclotide [Linzess] 72 MCG PO SCH (21:45)
[2018-06-15] MEDS ORDERED: DEXTROSE 50% 25 GM/50 ML VIAL IV PRN (22:05)
[2018-06-15] MEDS ORDERED: GLUCAGON 1 MG VIAL IM PRN (22:05)
[2018-06-15] MEDS: MULTIVITAMIN (CENTRUM) TABLET PO SCH (22:54)
[2018-06-15] MEDS: ATORVASTATIN 40 MG TABLET PO SCH (22:55)
[2018-06-15] MEDS: AMIODARONE 200 MG TABLET PO SCH (22:55)
[2018-06-15] MEDS: METOPROLOL TARTRATE 25 MG TABLET PO SCH (22:55)
[2018-06-15] MEDS: cefTRIAXone 1,000 MG in SYRINGE 1 EACH IV SCH (22:56)
[2018-06-15] MEDS: SODIUM CHLORIDE 0.9% 1,000 ML IV SCH (22:56)
[2018-06-16 05:41] LABS: Basophils # 0.1 10*3/uL (0.0-0.2); Basophils % 1.6 % (0.0-0.8); Eosinophils # 0.9 10*3/uL (0.0-0.87); Hematocrit 37.5 VOL% (35.7-47.0); Hemoglobin 11.6 GM/DL (12.0-16.0); Immature Granulocytes % 0.5 %; Immature Granulocytes Absolute 0.03 #; Lymphocytes # 1.3 10*3/uL (1.4-4.0); Lymphocytes % 21.2 % (21.3-54.2); Mean Corpuscular HGB Conc 30.9 GM/DL (32-36); Mean Corpuscular Hemoglobin 27 PG (27-34); Mean Platelet Volume 11.3 FL (9.6-12.0); Monocytes # 0.9 10*3/uL (0.11-0.8); Neutrophils % 48.7 % (38.7-73.9); Platelet Count 245 T/CUMM (130-400); Red Blood Count 4.36 MC/CUMM (3.8-5.5); Red Cell Distribution Width 14.9 % (9.3-17.3); White Blood Count 6.1 T/CUMM (4-12)
[2018-06-16 06:02] LABS: Calcium 8.1 MG/DL (8.5-10.1); Osmolality,Calculated 290.3 MOS/KG (273-304); Potassium 3.7 MMOL/L (3.5-5.1)
[2018-06-16 06:18] LABS: Eosinophils 10 % (0-10); Lymphocytes 24 % (20-55); Segmented Neutrophils 61 % (50-85); Total Cells Counted 100
[2018-06-16 06:19] LABS: Acanthocytes Few; Hypochromasia 1+; Microcytosis 1+; Platelet Estimate Normal
[2018-06-16 06:20] LABS: Atypical Lymphocytes Few
[2018-06-16] MEDS: MULTIVITAMIN (CENTRUM) TABLET PO SCH ×2 (08:54→21:23)
[2018-06-16] MEDS: METOPROLOL TARTRATE 25 MG TABLET PO SCH ×2 (08:54→21:22)
[2018-06-16] MEDS: AMIODARONE 200 MG TABLET PO SCH ×2 (08:54→21:22)
[2018-06-16] MEDS: ASPIRIN EC 325 MG TABLET PO SCH (08:54)
[2018-06-16] MEDS: CLOPIDOGREL 75 MG TABLET PO SCH (12:57)
[2018-06-16] MEDS: INSULIN REGULAR 100 UNIT/ML SUBCUT SCH ×4 (13:15→22:02)
[2018-06-16] MEDS: SODIUM CHLORIDE 0.9% 1,000 ML IV SCH (13:16)
[2018-06-16] MEDS: DEXTROSE 5% NACL 0.45% 1,000 ML IV SCH (16:08)
[2018-06-16] MEDS ORDERED: Linaclotide [Linzess] 72 MCG PO SCH (21:00)
[2018-06-16] MEDS ORDERED: PANTOPRAZOLE 40 MG TABLET PO SCH (21:00)
[2018-06-16] MEDS: ATORVASTATIN 40 MG TABLET PO SCH (21:22)
[2018-06-16] MEDS: cefTRIAXone 1,000 MG in SYRINGE 1 EACH IV SCH (21:27)
[2018-06-17 05:20] LABS: Basophils # 0.1 10*3/uL (0.0-0.2); Basophils % 0.9 % (0.0-0.8); Eosinophils # 1.2 10*3/uL (0.0-0.87); Eosinophils % 19.2 % (0.00-10.9); Hematocrit 37.8 VOL% (35.7-47.0); Hemoglobin 11.5 GM/DL (12.0-16.0); Immature Granulocytes % 0.5 %; Immature Granulocytes Absolute 0.03 #; Lymphocytes # 1.5 10*3/uL (1.4-4.0); Lymphocytes % 23.4 % (21.3-54.2); Mean Corpuscular HGB Conc 30.4 GM/DL (32-36); Mean Corpuscular Hemoglobin 26 PG (27-34); Mean Corpuscular Volume 85.9 FL (87-102); Mean Platelet Volume 11.3 FL (9.6-12.0); Monocytes # 0.8 10*3/uL (0.11-0.8); Monocytes % 12.1 % (1.7-12.7); Neutrophils # 2.8 10*3/uL (1.4-7.4); Neutrophils % 43.9 % (38.7-73.9); Platelet Count 216 T/CUMM (130-400); Red Cell Distribution Width 15.1 % (9.3-17.3); White Blood Count 6.4 T/CUMM (4-12)
[2018-06-17 05:39] LABS: Calcium 7.9 MG/DL (8.5-10.1); Osmolality,Calculated 287.3 MOS/KG (273-304); Potassium 3.2 MMOL/L (3.5-5.1)
[2018-06-17 06:18] LABS: Acanthocytes 2+; Band Neutrophils 1 % (0-10); Eosinophils 20 % (0-10); Lymphocytes 23 % (20-55); Platelet Estimate Normal; Segmented Neutrophils 44 % (50-85); Total Cells Counted 100
[2018-06-17] MEDS: DEXTROSE 5% NACL 0.45% 1,000 ML IV SCH (06:57)
[2018-06-17] MEDS ORDERED: POTASSIUM CHLORIDE 20 MEQ TABLET PO ONE ×2 (09:00→11:00)
[2018-06-17] MEDS: CLOPIDOGREL 75 MG TABLET PO SCH (11:02)
[2018-06-17] MEDS: MULTIVITAMIN (CENTRUM) TABLET PO SCH (11:02)
[2018-06-17] MEDS: AMIODARONE 200 MG TABLET PO SCH (11:02)
[2018-06-17] MEDS: ASPIRIN EC 325 MG TABLET PO SCH (11:02)
[2018-06-17] MEDS: METOPROLOL TARTRATE 25 MG TABLET PO SCH (11:02)
[2018-06-17 12:06] VITALS: BP 142/72
== END 2018-06-17 16:40 | disposition home health service (06) ==
LOC: N.ED 15:19 → N.EDINP 15:19 → N.2E 22:09
PROVIDERS: ADMIT Family Medicine; ATTEND Family Medicine